=== PATIENT | male | born 1955 | race Hispanic/Latino ===

== ENCOUNTER → 2024-04-18 | Outpatient (CLI) | payer OTHER ==
[2024-04-18 12:10] LABS: POTASSIUM 4.3 mmol/L (3.5-5.1)
== END | disposition home or self-care (01) ==
LOC: LAB 08:29
PROVIDERS: ATTEND Student in an Organized Health Care Education/Training Program
DX: I10 Essential (primary) hypertension (principal)
CPT/HCPCS: 36415; 80048

== ENCOUNTER → 2024-04-21 | Outpatient (CLI) | payer OTHER ==
[~2024-04-21] MED LIST: IOHEXOL 350 MG/ML 100ML INFUS..BTL IV ONE; METOPROLOL TARTRATE 1 MG/ML 5ML VIAL IV ONE
== END | disposition home or self-care (01) ==
LOC: RAH 09:50
PROVIDERS: ATTEND Student in an Organized Health Care Education/Training Program
DX: I25.10 Atherosclerotic heart disease of native coronary artery without angina pectoris (principal); M47.815 Spondylosis without myelopathy or radiculopathy, thoracolumbar region; Z82.49 Family history of ischemic heart disease and other diseases of the circulatory system
CPT/HCPCS: 75574; J3490 ×2; Q9967

== ENCOUNTER → 2024-05-16 | Outpatient (CLI) | payer OTHER | END | disposition home or self-care (01) | LOC: SHCH 11:01 | PROVIDERS: ATTEND Student in an Organized Health Care Education/Training Program | DX: I10 Essential (primary) hypertension (principal) | CPT/HCPCS: 93306 ==

== ENCOUNTER → 2024-11-25 | Outpatient (CLI) | payer OTHER ==
[2024-11-25 12:49] LABS: CHOLESTEROL 228 mg/dL (<200); HDL CHOLESTEROL 46 mg/dL (29-71); LDL DIRECT 144 mg/dL (0-99); TRIGLYCERIDES 285 mg/dL (30-200)
== END | disposition home or self-care (01) ==
LOC: LAB 11-24 14:00
PROVIDERS: ATTEND Student in an Organized Health Care Education/Training Program
DX: E78.2 Mixed hyperlipidemia (principal)
CPT/HCPCS: 36415; 80061

== ENCOUNTER 2025-05-02 14:26 | Emergency (ER) | payer OTHER ==
[~2025-05-02] VITALS: Ht 170.2 cm; Wt 83.5 kg
[2025-05-02 15:51] LABS: IMMATURE GRANULOCYTE ABSOLUTE 0.03 K/uL (0-1); NUCLEATED RED BLOOD CELLS 0.0 % (0.0-0.19); PLATELET COUNT (AUTO) 186 K/uL (130-400); RED BLOOD CELL COUNT(AUTO) 5.24 MIL/uL (4.50-6.20); RED CELL DISTRIBUTION WIDTH 11.5 % (11.0-15.5); WHITE BLOOD COUNT (AUTO) 8.4 K/uL (4.8-10.8)
--- NOTE | 2025-05-02 15:52 | HMCIMG ---
EXAM: CR Chest, 1 View. CLINICAL HISTORY: Shortness of breath COMPARISON: None provided. FINDINGS: LUNGS: The lungs show no infiltrate or other acute finding. PLEURAL SPACES: No pleural effusion or pneumothorax. MEDIASTINUM: The cardiomediastinal silhouette is within normal limits. BONES: No aggressive appearing osseous lesion seen. IMPRESSION: No acute cardiopulmonary pathology is evident. /[place]
[2025-05-02 16:00] LABS: INR 0.98 (0.85-1.15)
[2025-05-02 16:02] LABS: CREATININE 0.8 mg/dL (0.5-1.3); GLOMERULAR FILTR. RATE CALC 96.0 mL/min (>90); GLUCOSE,RANDOM 323.0 mg/dL (70-105); SODIUM SERUM 134.0 mmol/L (136-145); UREA NITROGEN, BLOOD 18.0 mg/dL (7-18)
[2025-05-02 16:11] LABS: ASPARTATE AMINOTRANSFERASE 17.0 U/L (10-37); TOTAL PROTEIN, SERUM 7.2 g/dL (6.0-8.3)
--- NOTE | 2025-05-02 16:12 | HMCIMG ---
EXAM: CT Abdomen and Pelvis Without IV contrast CLINICAL HISTORY: Abdominal pain TECHNIQUE: Axial computed tomography images of the abdomen and pelvis without intravenous contrast. CONTRAST: No IV contrast. COMPARISON: None provided. FINDINGS: LUNG BASES: The lung bases appear clear. No pleural effusions are seen. LIVER: Unremarkable. GALLBLADDER AND BILE DUCTS: There are multiple small gallstones noted. No biliary ductal dilatation is evident. PANCREAS: Unremarkable. SPLEEN: Unremarkable. ADRENAL GLANDS: Unremarkable. KIDNEYS, URETERS, AND BLADDER: 2 mm nonobstructing left renal collecting system stone. No additional urinary calculi. No hydronephrosis. STOMACH AND BOWEL:Unremarkable appearance of the stomach and bowel. No evidence of bowel obstruction. A few diverticuli are noted along sigmoid colon, without evidence of diverticulitis. APPENDIX: No evidence of acute appendicitis on CT examination. PERITONEUM: No free fluid. No free air. LYMPH NODES: No lymphadenopathy is evident. REPRODUCTIVE: Unremarkable as visualized. VASCULATURE: No evidence of abdominal aortic aneurysm. BONES: No aggressive appearing osseous lesion. No acute osseous pathology evident. IMPRESSION: 2 mm nonobstructing left renal stone. No additional urinary calculi. No hydronephrosis. No bowel obstruction or inflammation. Gallstones. /[place]
[2025-05-02 18:04] VITALS: BP 156/86; PULSE 99; RESP 18; TEMP 98.5; O2SAT 99
[2025-05-02] MEDS: FAMOTIDINE 20MG VIAL IV ONE ×2 (18:09→19:05)
[2025-05-02 18:21] LABS: APPEARANCE,URINE CLEAR (CLEAR); GLUCOSE, URINE (UA) >=1000 mg/dL (NEGATIVE); LEUKOCYTE ESTERASE ,URINE NEGATIVE Leu/uL (NEGATIVE); NITRATE,URINE NEGATIVE (NEGATIVE); OCCULT BLOOD,URINE NEGATIVE (NEGATIVE)
--- NOTE | 2025-05-02 18:50 | ERN ---
General Chief Complaint: Abdominal Pain Stated Complaint: UPPER ABD PAIN Time Seen by MD: 14:40 History of Present Illness Initial Comments 70 y/o male came in for abdominal pain. Pt otherwise has no concerns. Allergies: Coded Allergies: No Known Allergies (Verified Allergy, 10/31/12) Past Medical History Past Medical History: Bipolar, Cancer, Depression, Diabetes-Type II, High Cholesterol, Hypertension Medical History Other: PROSTATE CA, GASTRIC ULCERS Past Surgical History: Other Surgical History Other: PROSTATE REMOVAL ROS Dictation Abdominal pain Physical Exam General Appearance: (+) no apparent distress Neck: (+) normal inspection, (+) supple Respiratory: (+) chest non-tender, (+) lungs clear Heart: (+) regular, (+) no gallop Vascular: (+) no edema, (+) normal peripheral pulse Gastrointestinal: (+) soft, (+) non-tender, (+) no organomegaly, (+) bowel sound present Results Laboratory and Microbiology Lab and Micro Result Laboratory Tests Test 05/02/25 15:44 05/02/25 17:41 White Blood Count 8.4 K/uL (4.8-10.8) Red Blood Count 5.24 MIL/uL (4.50-6.20) Hemoglobin 15.5 g/dL (14.0-18.0) Hematocrit 43.4 % (42-54) Mean Corpuscular Volume 82.8 fL (79-99) Mean Corpuscular Hemoglobin 29.6 pg (27.0-33.0) Mean Corpuscular Hemoglobin Concent 35.7 g/dL (32.0-36.0) Red Cell Distribution Width 11.5 % (11.0-15.5) Platelet Count 186 K/uL (130-400) Mean Platelet Volume 10.5 fL (7.5-10.5) Immature Granulocyte % (Auto) 0.4 % (0-1) Neutrophils (%) (Auto) 67.2 % (40.0-77.0) Lymphocytes (%) (Auto) 23.3 % (21.0-51.0) Monocytes (%) (Auto) 6.3 % (3.0-13.0) Eosinophils (%) (Auto) 1.6 % (0.0-8.0) Basophils (%) (Auto) 1.2 % (0.0-5.0) Neutrophils # (Auto) 5.6 K/uL (1.8-7.7) Lymphocytes # (Auto) 2.0 K/uL (1.0-4.8) Monocytes # (Auto) 0.5 K/uL (0.1-1.0) Eosinophils # (Auto) 0.13 K/uL (0.00-0.70) Basophils # (Auto) 0.10 K/uL (0.00-0.20) Absolute Immature Granulocyte (auto 0.03 K/uL (0-1) Nucleated Red Blood Cells 0.0 % (0.0-0.19) Prothrombin Time 10.4 SEC (9.6-11.6) Prothromb Time International Ratio 0.98 (0.85-1.15) Activated Partial Thromboplast Time 24.4 SEC (26.3-35.5) L Sodium Level 134 mmol/L (136-145) L Potassium Level 4.0 mmol/L (3.5-5.1) Chloride Level 98 mmol/L (101-111) L Carbon Dioxide Level 26 mmol/L (21-32) Blood Urea Nitrogen 18 mg/dL (7-18) Creatinine 0.8 mg/dL (0.5-1.3) Glomerular Filtration Rate Calc 96 mL/min (>90) Random Glucose 323 mg/dL (70-105) H Lactic Acid Level 1.5 mmol/L (0.8-2.5) Total Calcium 9.5 mg/dL (8.5-10.1) Total Bilirubin 1.1 mg/dL (0.2-1.0) H Direct Bilirubin 0.2 mg/dL (0.0-0.3) Aspartate Amino Transf (AST/SGOT) 17 U/L (10-37) Alanine Aminotransferase (ALT/SGPT) 33 U/L (12-78) Alkaline Phosphatase 109 U/L (50-136) Troponin I High Sensitivity 6 ng/L (4-75) Total Protein 7.2 g/dL (6.0-8.3) Albumin 3.6 g/dL (3.5-5.0) Lipase 76 U/L (16-77) Urine Color LIGHT-YELLOW (YELLOW) Urine Appearance CLEAR (CLEAR) Urine pH 6.0 (5.0-8.0) Urine Specific Mcgrew 1.019 (1.001-1.031) Urine Protein NEGATIVE mg/dL (NEGATIVE) Urine Glucose (UA) >=1000 mg/dL (NEGATIVE) H Urine Ketones NEGATIVE mg/dL (NEGATIVE) Urine Occult Blood NEGATIVE (NEGATIVE) Urine Nitrate NEGATIVE (NEGATIVE) Urine Bilirubin NEGATIVE mg/dL (NEGATIVE) Urine Urobilinogen 0.2 mg/dL (0.2-1.0) Urine Leukocyte Esterase NEGATIVE Ke[place]/uL Urine RBC 2-5 /HPF (0-1) H Urine WBC 0-1 /HPF (0-1) Urine Bacteria None /HPF (None Seen) MDM Pt states that he feels better and no longer has abdominal pain. Pt will be discharge home to follow up with primary care physician. ED Course Orders Procedure Category Date Status Time 12 Lead Ekg Tracing- EKG 05/02/25 Logged Technical 14:35 12 Lead Ekg Tracing- EKG 05/02/25 Logged Technical 14:46 Cbc With Differential LAB 05/02/25 Complete 14:46 Basic Metabolic Panel LAB 05/02/25 Complete 14:46 Hepatic Function Panel LAB 05/02/25 Complete 14:46 Lactic Acid LAB 05/02/25 Complete 14:46 Lipase LAB 05/02/25 Complete 14:46 Pt And Ptt LAB 05/02/25 Complete 14:46 Urinalysis LAB 05/02/25 Complete W/Microscopic 14:46 Troponin I High LAB 05/02/25 Complete Sensitivity 14:46 Chest 1vw RAD 05/02/25 Resulted 14:46 Ct Abdomen/Pelvis W/O CT 05/02/25 Resulted Contrast 14:46 Ondansetron 4mg Inj PHA 05/02/25 Complete (Zofran 4mg Inj) 15:00 Famotidine 20mg Vial PHA 05/02/25 Complete (Pepcid 20mg Vial) 15:00 Morphine 2mg Syg PHA 05/02/25 Complete (Morphine 2mg Syg) 15:00 Current Medications Medications (Trade) Dose Ordered Sig/Shay Route PRN Reason Start Time Stop Time Status Last Admin Dose Admin Famotidine (Pepcid 20mg Vial) 20 mg ONCE ONCE IV 05/02/25 15:00 05/02/25 15:01 DC 05/02/25 18:09 Morphine Sulfate (morPHINE 2MG SYG) 2 mg ONCE ONCE IVP 05/02/25 15:00 05/02/25 15:01 DC 05/02/25 18:09 Ondansetron HCl (zoFRAN 4MG INJ) 4 mg ONCE ONCE IVP 05/02/25 15:00 05/02/25 15:01 DC 05/02/25 18:09 Vital Signs Date Time Temp Pulse Resp B/P (MAP) Pulse Ox O2 Delivery O2 Flow Rate FiO2 05/02/25 18:04 98.4 99 18 156/86 99 Room Air* 0 21 05/02/25 14:32 97.7 90 16 183/81 95 Room Air 0 DX & DISP Disposition: Discharge Departure Impression: Primary Impression: Abdominal pain Condition: Stable Referrals: SELF,REFERRAL (PCP) TATA HARDEN MD May 02, 2025 18:50
[2025-05-02] MEDS ORDERED: FAMO-136 PO (18:58)
--- NOTE | 2025-05-03 06:45 | EKG ---
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
== END 2025-05-02 21:06 ==
LOC: EDH 14:26
DX: R10.10 Upper abdominal pain, unspecified (principal); E11.9 Type 2 diabetes mellitus without complications; E78.00 Pure hypercholesterolemia, unspecified; I10 Essential (primary) hypertension; Z90.79 Acquired absence of other genital organ(s)
CPT/HCPCS: 99285; 74176; 96374; 96375; 71045; 80076; 84484; 80048; 83690; 85025; 85610; 85730; 83605; 81001; 36415; 96376; 93005; J3490 ×2; J2270; J2405

== ENCOUNTER 2025-06-11 13:07 | Emergency (ER) | payer OTHER ==
[~2025-06-11] VITALS: Ht 170.2 cm; Wt 85.7 kg
[~2025-06-11 13:07] MED LIST changes: +FAMO-136 PO; -IOHEXOL 350 MG/ML 100ML INFUS..BTL IV ONE; -METOPROLOL TARTRATE 1 MG/ML 5ML VIAL IV ONE
--- NOTE | 2025-06-11 13:44 | EKG ---
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
[2025-06-11 14:12] LABS: IMMATURE GRANULOCYTE ABSOLUTE 0.03 K/uL (0-1); NUCLEATED RED BLOOD CELLS 0.0 % (0.0-0.19); PLATELET COUNT (AUTO) 198 K/uL (130-400); RED BLOOD CELL COUNT(AUTO) 4.89 MIL/uL (4.50-6.20); RED CELL DISTRIBUTION WIDTH 11.8 % (11.0-15.5); WHITE BLOOD COUNT (AUTO) 8.5 K/uL (4.8-10.8)
[2025-06-11 14:22] LABS: INR 0.95 (0.85-1.15)
[2025-06-11 15:21] LABS: CREATININE 1.2 mg/dL (0.5-1.3); GLOMERULAR FILTR. RATE CALC 66.0 mL/min (>90); SODIUM SERUM 130.0 mmol/L (136-145); UREA NITROGEN, BLOOD 23.0 mg/dL (7-18)
[2025-06-11 15:25] LABS: GLUCOSE,RANDOM 505.0 mg/dL (70-105)
--- NOTE | 2025-06-11 16:29 | HMCIMG ---
EXAM: CT Head Without IV contrast. CLINICAL HISTORY: Headache TECHNIQUE: Axial computed tomography images of the head/brain without intravenous contrast. COMPARISON: None provided. FINDINGS: BRAIN: There is diffuse cerebral atrophy, evidenced by prominence of the cortical sulci and ventricular system, compatible with age-related changes. There is evidence of chronic small vessel ischemic change characterized by bilateral periventricular and deep white matter hypodensities. No evidence of acute hemorrhage. No mass lesion. No CT evidence for acute territorial infarct. No midline shift or extra-axial collections. VENTRICLES: No hydrocephalus. ORBITS: The orbits are unremarkable. SINUSES AND MASTOIDS: The paranasal sinuses and mastoid air cells are clear. BONES: No fracture. SOFT TISSUES: Unremarkable. IMPRESSION: 1. No acute intracranial findings. /[place]
[2025-06-11] MEDS: 0.9%NACL 1000ML 1,000 ML IV SCH (17:16)
[2025-06-11 17:27] VITALS: BP 150/69; PULSE 87; RESP 16; TEMP 98.2; O2SAT 97
--- NOTE | 2025-06-11 18:00 | ERN ---
General Chief Complaint: Multiple Complaints Stated Complaint: MULTIPLE COMPLAINTS Time Seen by MD: 13:25 Time Seen by Midlevel: 13:25 Source: patient History of Present Illness Initial Comments Patient is a 70-year-old male presenting to the emergency department for evaluation of hyperglycemia. According to the patient his sugar was over 500 earlier today. He does report stopping his diabetic medication and attempting to reverse his diabetes with diet and exercise Allergies: Coded Allergies: No Known Allergies (Verified Allergy, 10/31/12) Home Meds Active Scripts Famotidine (Pepcid) 20 Mg Tablet, 1 TAB PO BID for 30 Days, #60 TAB 0 Refills Prov:CALIN WAGNER 05/02/25 Past Medical History Past Medical History: Cancer, Diabetes-Type II, High Cholesterol, Hypertension, Kidney Stone Medical History Other: PROSTATE CA, GASTRIC ULCERS Past Surgical History: Other Surgical History Other: PROSTATE CA ROS Dictation CONSTITUTIONAL: Negative except for HPI HEAD/FACE: Negative except for HPI EENT: Negative except for HPI RESPIRATORY: Negative except for HPI GASTROINTESTINAL/ABDOMINAL: Negative except for HPI GENITOURINARY: Negative except for HPI MUSCULOSKELETAL: Negative except for HPI INTEGUMENTARY: Negative except for HPI NEUROLOGICAL/PSYCH: Negative except for HPI HEMATOLOGIC/LYMPHATIC: Negative except for HPI All Systems Negative, Except as noted above. 13 point review of systems assessed and all negative except for above. Physical Exam Physical Exam Dictation Vital Signs reviewed General Appearance: Alert, oriented x 3, no acute distress, well developed, nourished. Head and Face: non-traumatic. Eyes: PERRL, pink conjunctivas, eyelid no trauma, anterior chamber with arcus senilis. Ears: Pinnas intact and no signs of trauma or erythema ear canals clear and no discharge TM no erythema Nose: No discharge, no bleeding. Oropharynx: Mouth normal, tongue pink, pharynx clear,no erythema, tonsils no exudates, no abscesses noted, mucous membrane moist Neck: Supple, non-tender, no thyromegaly, no masses, no JVD, no bruits Breast:Deferred Chest:No tenderness, no crepitus, no paradoxical movement, no retractions Lungs:Clear, well-ventilated, symmetric, no rales, no wheezing, no rhonchi, no stridor, good breath sounds bilaterally Heart: Regular rate, regular rhythm, no murmur, no gallops Vascular: no peripheral edema, Abdomen: Soft, positive bowel sounds, nondistended, no guarding, nontender, no rebound, no masses no hepatomegaly, no splenomegaly, no Nguyen's sign, no hernias. Rectal: Deferred Genital: Deferred Neurological: Normal speech, motor function intact, sensory function intact Musculoskeletal: Neck nontender, full range of motion, back nontender, full range of motion, Extremities: nontender, full range of motion Skin: Color pink, dry, no turgor, no rash, no lacerations, no abrasions, no contusions. Lymphatic: Deferred Results Laboratory and Microbiology Lab and Micro Result Laboratory Tests Test 06/11/25 13:51 06/11/25 16:39 White Blood Count 8.5 K/uL (4.8-10.8) Red Blood Count 4.89 MIL/uL (4.50-6.20) Hemoglobin 14.6 g/dL (14.0-18.0) Hematocrit 40.3 % (42-54) L Mean Corpuscular Volume 82.4 fL (79-99) Mean Corpuscular Hemoglobin 29.9 pg (27.0-33.0) Mean Corpuscular Hemoglobin Concent 36.2 g/dL (32.0-36.0) H Red Cell Distribution Width 11.8 % (11.0-15.5) Platelet Count 198 K/uL (130-400) Mean Platelet Volume 11.1 fL (7.5-10.5) H Immature Granulocyte % (Auto) 0.4 % (0-1) Neutrophils (%) (Auto) 64.8 % (40.0-77.0) Lymphocytes (%) (Auto) 25.2 % (21.0-51.0) Monocytes (%) (Auto) 6.0 % (3.0-13.0) Eosinophils (%) (Auto) 2.5 % (0.0-8.0) Basophils (%) (Auto) 1.1 % (0.0-5.0) Neutrophils # (Auto) 5.5 K/uL (1.8-7.7) Lymphocytes # (Auto) 2.1 K/uL (1.0-4.8) Monocytes # (Auto) 0.5 K/uL (0.1-1.0) Eosinophils # (Auto) 0.21 K/uL (0.00-0.70) Basophils # (Auto) 0.09 K/uL (0.00-0.20) Absolute Immature Granulocyte (auto 0.03 K/uL (0-1) Nucleated Red Blood Cells 0.0 % (0.0-0.19) Red Blood Cell Morphology See comments Prothrombin Time 10.1 SEC (9.6-11.6) Prothromb Time International Ratio 0.95 (0.85-1.15) Activated Partial Thromboplast Time 23.9 SEC (26.3-35.5) L Sodium Level 130 mmol/L (136-145) L Potassium Level 4.4 mmol/L (3.5-5.1) Chloride Level 98 mmol/L (101-111) L Carbon Dioxide Level 23 mmol/L (21-32) Blood Urea Nitrogen 23 mg/dL (7-18) H Creatinine 1.2 mg/dL (0.5-1.3) Glomerular Filtration Rate Calc 66 mL/min (>90) Random Glucose 505 mg/dL (70-105) *H Total Calcium 8.2 mg/dL (8.5-10.1) L Troponin I High Sensitivity 5 ng/L (4-75) Whole Blood Glucose 339 MG/DL (70-110) H Labs Reviewed?: Yes MDM MDM: Differential diagnosis: Dehydration, uncontrolled hyperglycemia, DKA There are no social concerns with this patient. Prescription drug management Prescriptions will include: None Medical management and examination interpretation discussions were had by me with other qualified healthcare professionals as indicated for the patient's care. ED Course Orders Procedure Category Date Status Time 12 Lead Ekg Tracing- EKG 06/11/25 Resulted Technical 13:35 Cbc With Differential LAB 06/11/25 Complete 13:35 Basic Metabolic Panel LAB 06/11/25 Complete 13:35 Pt And Ptt LAB 06/11/25 Complete 13:35 Troponin I High LAB 06/11/25 Complete Sensitivity 13:35 Ct Head/Brain W/O CT 06/11/25 Resulted Contrast 13:35 0.9%Nacl 1000ml (Ns PHA 06/11/25 In Process 1000ml) 16:30 Ketone Blood LAB 06/11/25 Logged Quantitative 16:26 Insulin Regular, PHA 06/11/25 In Process Human 3ml (Humulin R 16:30 Current Medications Medications (Trade) Dose Ordered Sig/Shay Route PRN Reason Start Time Stop Time Status Last Admin Dose Admin Insulin Human Regular (humuLIN R 100 UNIT/ML 3ML) 8 unit ONCE IV 06/11/25 16:30 06/11/25 20:30 06/11/25 17:16 Sodium Chloride 1,000 ml @ 0 mls/hr ONCE IV 06/11/25 16:30 06/12/25 16:29 06/11/25 17:16 Vital Signs Date Time Temp Pulse Resp B/P (MAP) Pulse Ox O2 Delivery O2 Flow Rate FiO2 06/11/25 17:27 98.2 87 16 150/69 97 Room Air* 0 21 06/11/25 14:49 91 16 127/76 98 Room Air* 0 21 06/11/25 13:10 98.2 98 18 137/65 97 Room Air 0 DX & DISP Disposition: Discharge Departure Impression: Primary Impression: Uncontrolled diabetes mellitus with hyperglycemia Condition: Stable Additional Instructions: Follow up with your primary care doctor in 2-3 days for repeat evaluation. You may need to start diabetic medication. Return to the ER if you develop any new or worsening symptoms Referrals: VIOLA NGUYEN MD (PCP) I have reviewed the case, and I agree with, Diagnosis and Plan I performed the substantive portion of the visit. I have reviewed and personally made and approve the management plan that is documented in the note by myself or the JONNY. I acknowledge for responsibility for the patient's management plan. CALIN WAGNER Jun 11, 2025 18:00
== END 2025-06-11 18:08 | disposition home or self-care (01) ==
LOC: EDH 13:07
DX: E11.65 Type 2 diabetes mellitus with hyperglycemia (principal); E78.00 Pure hypercholesterolemia, unspecified; I10 Essential (primary) hypertension; Z87.11 Personal history of peptic ulcer disease; Z79.899 Other long term (current) drug therapy
CPT/HCPCS: 99285; 96374; 70450; 96361; 84484; 80048; 85025; 85610; 85730; 82948 ×3; 36415; 93005; J1815; J7030